=== PATIENT | male | born 1985 | race Two or more races ===

== ENCOUNTER → 2021-12-31 | Day surgery (SDC) | payer OTHER ==
[~2021-12-31] VITALS: Ht 165.1 cm; Wt 68.9 kg
[~2021-12-31] MED LIST: BUPIVACAINE 0.25% INJ 50ML VIAL ONE; HYDROmorphone HCL 2 MG/ML VL/or syr IV PRN; LIDOCAINE 1%-Mpf/Epinephrine 1:200,000 ONE; LIDOCAINE 2% (LOCAL ANESTH.) PF 5ml SDV ONE; MIDAZOLAM HCL 2MG/2ML 2ml VIAL (1mg/ml) ONE; ONDANSETRON HCL 4 MG/2 ML VIAL IV PRN; ONDANSETRON HCL 4 MG/2 ML VIAL ONE; PROPOFOL 10 MG/ML 20 ML IV ONE; TRIAMCINOLONE 40MG/ML 1ML VIAL ONE; ceFAZolin 1GM/50ML 100 ML IV ONE; fentaNYL CITRATE 100 MCG/2 ML VL ONE
[2021-12-31 09:45] VITALS: BP 126/76
== END | disposition home or self-care (01) ==
LOC: SUR 06:19
PROVIDERS: ATTEND Urology
DX: R30.0 Dysuria (principal); N35.919 Unspecified urethral stricture, male, unspecified site; N50.812 Left testicular pain; N50.3 Cyst of epididymis; Z20.822 Contact with and (suspected) exposure to COVID-19
CPT/HCPCS: 52281; C1769; J0690; J2001; J2250; J2405; J2704; J3010; J3301; J3490; J7030